=== PATIENT | male | born 1955 | race Caucasian/White ===

== ENCOUNTER 2016-11-18 08:59 | Day surgery (SDC) | payer MEDICARE, OTHER ==
--- NOTE | ~2016-11-18 | EGD ---
EGD REPORT [facility] [address] [address] NAME: DAMIAN CONKLIN : 55 STATUS : REG [facility]#: [id number] AGE: 61 ADM/REG DATE : 11/18/16 MR#: [id number] REPORT SERV DATE: 11/18/16 DICTATED BY: GLORIA MONTENEGRO DATE: 11/18/16 REPORT STATUS : Draft TRANSCRIBED BY: [facility] DATE: 11/18/16 Endoscopy Center Patient Name: Damian Conklin Date of : 1955 Attending MD: GLORIA MONTENEGRO MD Procedure Date No Time: 11/18/2016 Procedure: Upper GI endoscopy Indications: Dysphagia Referring MD: GLORIA BENITEZ Medicines: as per anesthesia Complications: No immediate complications. Procedure: Pre-Anesthesia Assessment: - ASA Grade Assessment: III - A patient with severe systemic disease. After obtaining informed consent, the endoscope was passed under direct vision. Throughout the procedure, the patient's blood pressure, pulse, and oxygen saturations were monitored continuously. The GIF H190 [id number] was introduced through the mouth, and advanced to the third part of duodenum. The upper GI endoscopy was accomplished without difficulty. The patient tolerated the procedure. Findings: The examined esophagus was normal. The scope was withdrawn. Dilation was performed with a Walker dilator with no resistance at 44 Fr. The entire examined stomach was normal. The cardia and gastric fundus were normal on retroflexion. The examined duodenum was normal. Impression: - Normal esophagus. Dilated. - Normal stomach. - Normal examined duodenum. Recommendation: - Continue present medications. Procedure Code(s): --- Professional --- 85216, Esophagogastroduodenoscopy, flexible, transoral; diagnostic, including collection of specimen(s) by brushing or washing, when performed (separate procedure) 67039, Dilation of esophagus, by unguided sound or bougie, single or multiple passes Diagnosis Code(s): --- Professional --- R13.10, Dysphagia, unspecified EGD REPORT [facility] [address] [place]. [address] NAME: DAMIAN CONKLIN : 55 STATUS : REG [facility] PAT#: [id number] AGE: 61 ADM/REG DATE : 11/18/16 MR#: [id number] REPORT SERV DATE: 11/18/16 DICTATED BY: GLORIA MONTENEGRO. DATE: 11/18/16 REPORT STATUS : Draft TRANSCRIBED BY: [employer] DATE: 11/18/16 CPT copyright 2013 [employer]. All rights reserved. The codes documented in this report are preliminary and upon station chief review may be revised to meet current compliance requirements. GLORIA MONTENEGRO MD 11/18/2016 12:41 PM This report has been signed electronically. Number of Addenda: 0 Note Initiated On: 11/18/2016 12:17 PM Scope Withdrawal Time 0 hours 0 minutes 0 seconds [address] [place] [address]
--- NOTE | ~2016-11-18 | EGD ---
EGD REPORT [facility] [address] [place] [address] NAME: DAMIAN CONKLIN : 55 STATUS : REG [facility]#: [id number] AGE: 61 ADM/REG DATE : 11/18/16 MR#: [id number] REPORT SERV DATE: 11/18/16 DICTATED BY: GLORIA MONTENEGRO DATE: 11/18/16 REPORT STATUS : Draft [facility]ANSCRIBED BY: [facility] DATE: 11/18/16 Endoscopy Center Patient Name: Damian Conklin Date of : 1955 Attending MD: GLORIA MONTENEGRO MD Procedure Date No Time: 11/18/2016 Procedure: Colonoscopy Indications: Constipation Referring MD: GLORIA BENITEZ Medicines: as per anesthesia Complications: No immediate complications. Procedure: After I obtained informed consent, the scope was passed under direct vision. Throughout the procedure, the patient's blood pressure, pulse, and oxygen saturations were monitored continuously. The PCF [id number] was introduced through the anus and advanced to the cecum, identified by appendiceal orifice and ileocecal valve. The colonoscopy was somewhat difficult due to significant looping and a tortuous colon. The patient tolerated the procedure. The quality of the bowel preparation was fair. Findings: The perianal and digital rectal examinations were normal. A sessile polyp was found in the cecum. The polyp was 3 mm in size. The polyp was removed with a cold biopsy forceps. Resection and retrieval were complete. A sessile polyp was found in the sigmoid colon. The polyp was 4 mm in size. The polyp was removed with a cold biopsy forceps. Resection and retrieval were complete. Internal hemorrhoids were found during endoscopy and were mild. Impression: - One 3 mm polyp in the cecum. Resected and retrieved. - One 4 mm polyp in the sigmoid colon. Resected and retrieved. - Internal hemorrhoids. Recommendation: - Await pathology results. - Repeat colonoscopy for surveillance based on pathology results. Procedure Code(s): --- Professional --- 35728, Colonoscopy, flexible, proximal to splenic flexure; with biopsy, single or multiple EGD REPORT [facility] [address] [place] [address] NAME: DAMIAN CONKLIN : 55 STATUS : REG [facility] PAT#: [id number] AGE: 61 ADM/REG DATE : 11/18/16 MR#: [id number] REPORT SERV DATE: 11/18/16 DICTATED BY: GLORIA MONTENEGRO DATE: 11/18/16 REPORT STATUS : Draft TRANSCRIBED BY: [employer] DATE: 11/18/16 Diagnosis Code(s): --- Professional --- D12.5, Benign neoplasm of sigmoid colon D12.0, Benign neoplasm of cecum K64.8, Other hemorrhoids K59.00, Constipation, unspecified CPT copyright 2013 [employer]. All rights reserved. The codes documented in this report are preliminary and upon medical billing coder review may be revised to meet current compliance requirements. GLORIA MONTENEGRO MD 11/18/2016 1:21 PM This report has been signed electronically. Number of Addenda: 0 Note Initiated On: 11/18/2016 12:41 PM Scope Withdrawal Time 0 hours 15 minutes 35 seconds [address] [place] [address]
[~2016-11-18 08:59] MED LIST: BUSPAR15 M1 PO; COZAAR100 MG PO; CYMBALTA60 PO; RISP2 PO; SEROQUEL1C PO; SEROQUEL300 MG PO; SINGULAIR1 PO; TRAZ100 PO
== END 2016-11-18 23:59 | disposition home or self-care (01) ==
LOC: DMU 08:59
PROVIDERS: Internal Medicine Gastroenterology
PROC: 0D750ZZ Dilation of Esophagus, Open Approach (ICD-10-PCS; 2016-11-18)
PROC: 0DBH8ZZ Excision of Cecum, Via Natural or Artificial Opening Endoscopic (ICD-10-PCS; principal; 2016-11-18 11:00)
PROC: 0DBN8ZZ Excision of Sigmoid Colon, Via Natural or Artificial Opening Endoscopic (ICD-10-PCS; 2016-11-18 11:00)
PROC: 0DJ08ZZ Inspection of Upper Intestinal Tract, Via Natural or Artificial Opening Endoscopic (ICD-10-PCS; 2016-11-18 11:00)
DX: D12.0 Benign neoplasm of cecum (principal); R13.10 Dysphagia, unspecified; K63.5 Polyp of colon; K64.8 Other hemorrhoids; J44.9 Chronic obstructive pulmonary disease, unspecified; F43.10 Post-traumatic stress disorder, unspecified; I10 Essential (primary) hypertension; Z87.891 Personal history of nicotine dependence; Z86.73 Personal history of transient ischemic attack (TIA), and cerebral infarction without residual deficits; Z79.899 Other long term (current) drug therapy
CPT/HCPCS: 88305